=== PATIENT | male | born 1965 | race Caucasian/White ===

== ENCOUNTER → 2020-01-10 16:23 | Outpatient (CLI) | payer OTHER, SELFPAY ==
--- NOTE | ~2020-01-10 | MR_ITS ---
EXAMINATION: MR knee LT wo con DATE: 01/10/2020 17:11 INDICATION: Left knee pain. Medial meniscal derangement. TECHNIQUE: Magnetic resonance imaging (MRI) of the left knee was performed without intravenous contra st. Sequences included coronal PD-weighted FSE, coronal PD-weighted FS FSE, sagittal T2-weighted FSE , sagittal PD-weighted FS FSE and axial PD weighted fat saturated FSE. COMPARISON: Left knee radiographs dated 12/03/2019 FINDINGS: Medial compartment: Longitudinal horizontal tear extending to the inferior articular surface of the posterior horn and po sterior body of the medial meniscus. Mild partial thickness cartilage loss in the medial compartment with some shallow chondral surface irregularity along the anterior weightbearing medial femoral condy le. Lateral compartment: Lateral meniscus is normal. Partial-thickness chondral fissuring with minimal underlying subarticular edema along the posterior rim of the lateral tibial plateau. Patellofemoral compartment: Articular cartilage is normal. Ligaments and tendons: Anterior and posterior cruciate ligaments are normal. The medial collateral ligament and fibular vel ateral ligament complex are normal. The extensor mechanism is normal. The visualized medial and later al hamstring tendons as well as the iliotibial band are normal. Fluid: Likely reactive small left knee joint effusion. No loose osteochondral bodies identified. Mild edema in the soft tissues along the posterior medial margin of the knee likely reactive related to the meni scal tear. Mild prepatellar edema without discrete bursal fluid collection. Osseous/other: Bone alignment is normal. No fracture or foreign marrow replacing process. IMPRESSION: 1. Medial meniscal tear. 2. Mild osteoarthritis in the medial and lateral compartments. 3. Likely reactive small left knee joint effusion. Reviewed, dictated and finalized at location A.
== END ==
PROVIDERS: PCP Family Medicine; Visit Provider Orthopaedic Surgery
DX: M17.12 Unilateral primary osteoarthritis, left knee (principal); S83.242A Other tear of medial meniscus, current injury, left knee, initial encounter; X58.XXXA Exposure to other specified factors, initial encounter
CPT/HCPCS: 73721

== ENCOUNTER 2020-12-19 01:50 | Day surgery (SDC) | payer OTHER, SELFPAY ==
[2020-12-04 14:36] VITALS: BMI 23.9
[2020-12-19 07:47] VITALS: BP 148/82; PULSE 61; RESP 18; TEMP 36.3; O2SAT 100; BMI 23.1
[2020-12-19] MEDS: LACTATED RINGERS 1,000 ML 150 ML IV CONT (08:00)
--- NOTE | 2020-12-19 08:01 | P.CONGI_ITS ---
Assessment and Plan Assessment and plan (1) Colon cancer screening: Code(s): Z12.11 - Encounter for screening for malignant neoplasm of colon Status: Acute Assessment and Plan: Patient presents for screening colonoscopy. He appears to be at average risk for colon polyps. GI Consult Note Consult date/time: 12/19/20 08:01 HPI: Bhaskar Hernandez is a 55 year old male Presents for screening colonoscopy. Patient reports that his current weight appetite and bowel movements are normal. He denies abdominal pain. He has had no bleeding. Family history is noncontributory. Patient presents for neoplasia screening. Review of Systems Review of Systems: All systems reviewed & are unremarkable except as noted in HPI and below PMFSH Past Medical History Medical History Allergic rhinitis, cause unspecified Atherosclerotic heart disease of [place] coronary artery with other forms of angina pectoris Coronary arteriosclerosis after percutaneous transluminal coronary angioplasty (PTCA) Essential (primary) hypertension Hypertension MCL sprain of right knee Medication side effect Metabolic syndrome Mixed hyperlipidemia Old myocardial infarction Prediabetes Statin-induced myositis Family History Family History Father Family history of cardiovascular disease, Onset Age: 36 Acute myocardial infarction Social History Social History Alcohol intake: current Substance use type: does not use Living arrangements: with family Spiritual care concerns: No Meds Home Medications and Allergies Home Medications Medication Instructions Recorded Confirmed Type aspirin 81 mg tablet,delayed 81 mg PO DAILY 04/19/19 12/04/20 History release rosuvastatin 20 mg tablet 20 mg PO DAILY 03/21/20 12/04/20 History lisinopril 20 mg tablet See Rx Instructions .ROUTE 05/26/20 12/04/20 Rx .COMPLEX #90 tablet metoprolol tartrate 25 mg tablet 25 mg PO BID #180 tablet 07/29/20 12/04/20 Rx amlodipine [Norvasc] 5 mg DAILY 12/04/20 12/04/20 History Allergies Allergy/AdvReac Type Severity Reaction Status Date / Time Penicillins Allergy Mild Rash Verified 12/19/20 07:46 Vital Signs Vital Signs - 24 hr 12/19/20 07:47 Temperature 97.4 F L Pulse Rate 61 Respiratory Rate 18 Blood Pressure 148/82 H Pulse Oximetry 100 Exam Narrative: Physical exam reveals patient to be alert. Vital signs stable. HEENT exam is unremarkable. Patient is anicteric. Lungs are clear to auscultation and percussion. Heart is without murmur or extra sounds. Abdominal exam bowel sounds are present soft nontender with no hepatosplenomegaly. Digital external rectal exam is normal.
--- NOTE | 2020-12-19 08:19 | WPDANESEPPF ---
Anes - Initial Pre Proc Eval Procedure: Operation Date: 12/19/20 08:45 Proposed Procedures p Screening Colonoscopy - Sravan Wilkerson MD Date/Time: 12/19/20 08:19 Surgeon: Sravan Wilkerson MD Pre Op Diagnosis: neoplasm screening Patient Data Age: 55 Gender: M Height: 1.83 m Weight: 77.4 kg Last Vital Signs Temp 97.4 F L 12/19/20 07:47 Pulse 61 12/19/20 07:47 Resp 18 12/19/20 07:47 BP 148/82 H 12/19/20 07:47 Pulse Ox 100 12/19/20 07:47 Allergies Allergy/AdvReac Type Severity Reaction Status Date / Time Penicillins Allergy Mild Rash Verified 12/19/20 07:46 Home Medications Medication Instructions Recorded Confirmed Type aspirin 81 mg tablet,delayed 81 mg PO DAILY 04/19/19 12/04/20 History release rosuvastatin 20 mg tablet 20 mg PO DAILY 03/21/20 12/04/20 History lisinopril 20 mg tablet See Rx Instructions .ROUTE 05/26/20 12/04/20 Rx .COMPLEX #90 tablet metoprolol tartrate 25 mg tablet 25 mg PO BID #180 tablet 07/29/20 12/04/20 Rx amlodipine [Norvasc] 5 mg DAILY 12/04/20 12/04/20 History Patient hx anesthesia problems: none Family hx anesthesia problems: none PMFSH Past Medical History Medical History Allergic rhinitis, cause unspecified Atherosclerotic heart disease of [place] coronary artery with other forms of angina pectoris Coronary arteriosclerosis after percutaneous transluminal coronary angioplasty (PTCA) Essential (primary) hypertension Hypertension MCL sprain of right knee Medication side effect Metabolic syndrome Mixed hyperlipidemia Old myocardial infarction Prediabetes Statin-induced myositis Family History Family History Father Family history of cardiovascular disease, Onset Age: 36 Acute myocardial infarction Social History Social History Alcohol intake: current Substance use type: does not use Living arrangements: with family Spiritual care concerns: No Anes - Eval Final PreProcedure Day of Procedure 12/19/20 08:19 Patient weight: normal Heart: regular rate and rhythm Lungs: clear to auscultation Airway: Mallampati scale class II Neurological: alert and oriented Last oral intake: >/= 8 hours ASA classification: III Emergent: no Anesthetic plan: proceed Anesthesia type and monitoring: general GIVS and standard monitoring Informed Consent: The patient's anesthetic plan and its attendant risks and benefits were discussed with the patient/family/POA. Questions were solicited and answers provided to the satisfaction of the patient/family/POA.
[2020-12-19 08:58] VITALS: BP 118/79; PULSE 63; RESP 16; O2SAT 100
[2020-12-19 09:08] VITALS: BP 115/72; PULSE 63; RESP 16; O2SAT 100
[2020-12-19 09:18] VITALS: BP 135/90; PULSE 60; RESP 16; O2SAT 100
== END 2020-12-19 09:29 | disposition home or self-care (01) ==
PROVIDERS: PCP Family Medicine; Visit Provider Internal Medicine Gastroenterology
PROC: 0DJD8ZZ Inspection of Lower Intestinal Tract, Via Natural or Artificial Opening Endoscopic (ICD-10-PCS; CPT 45378; principal; 2020-12-19 08:45)
DX: Z12.11 Encounter for screening for malignant neoplasm of colon (principal); K64.8 Other hemorrhoids; I25.10 Atherosclerotic heart disease of native coronary artery without angina pectoris; I10 Essential (primary) hypertension; E78.2 Mixed hyperlipidemia; I25.2 Old myocardial infarction; R73.03 Prediabetes; Z79.82 Long term (current) use of aspirin
CPT/HCPCS: 45378; J2001; J2704; J7120

== ENCOUNTER 2022-03-18 01:12 | Day surgery (SDC) | payer OTHER, SELFPAY ==
[2022-03-17 15:22] VITALS: BMI 24.4
[2022-03-18] VITALS (9 sets, daily range): BP systolic 111–170; BP diastolic 61–100; PULSE 58–75; RESP 13–22; TEMP 36.6; O2SAT 95–99; BMI 25.1
[2022-03-18 09:03] LABS: Basophils Absolute Auto 0.1 K/mm3 (0.0-0.1); Basophils Percent Auto 0.6 % (0.2-1.2); Eosinophils Absolute Auto 0.1 K/mm3 (0-0.3); Eosinophils Percent Auto 0.6 % (0-4.4); Hematocrit 47.7 % (42.0-52.0); Hemoglobin 16.9 g/dL (14.0-18.0); Immature Granulocyte Absolute 0.02 K/mm3 (0.00-0.031); Immature Granulocyte Percent A 0.2 % (0-0.5); Lymphocytes Absolute Auto 1.53 K/mm3 (0.9-3.2); Lymphocytes Percent Auto 17.7 % (18.3-44.2); Mean Corpuscular HGB Conc 35.4 g/dl (32-36); Mean Corpuscular Hemoglobin 30.3 pg (26-34); Mean Corpuscular Volume 85.5 fl (80-100); Mean Platelet Volume 9.9 fl (7.4-10.4); Monocytes Absolute Auto 0.9 K/mm3 (0.1-0.6); Monocytes Percent Auto 9.8 % (2.6-8.5); Neutrophils Absolute Auto 6.2 K/mm3 (1.3-6.7); Neutrophils Percent Auto 71.1 % (45.5-73.1); Platelet Count Result 222 k/mm3 (150-375); Red Blood Count 5.58 M/mm3 (4.6-6.20); Red Cell Distribution Width 11.7 % (11.5-14.5); White Blood Count 8.7 K/mm3 (4.5-10.0)
[2022-03-18 09:15] LABS: Anion Gap 9 mmol/L (8-16); Blood Urea Nitrogen 20 mg/dL (9-20); Calcium 9.2 mg/dL (8.4-10.2); Carbon Dioxide 27 mmol/L (22-30); Chloride 105 mmol/L (98-107); Estimated CRCL calculation 90 ml/min; Estimated Glomerular Filt Rate > 60; Glucose 178 mg/dL (65-110); Sodium 141 mmol/L (137-145)
[2022-03-18] MEDS: CLOPIDOGREL BISULFATE 300 MG TABLET 600 MG PO (09:17)
--- NOTE | 2022-03-18 10:32 | WPDHPUPDATE1 ---
History and Physical Update Update Date/Time: 03/18/22 10:32 History and Physical has been reviewed, including an updated exam of the patient. There are NO changes in the patient's condition. Risks, benefits, and alternatives have been discussed and questions answered. Patient agrees to proceed with procedure.
--- NOTE | 2022-03-18 10:33 | WPDMODSED ---
Moderate Sedation Note-Pt Data Patient Data Diagnosis: Abnormal stress test Present Complaint: Abnormal stress test Procedure to be performed/Plan: Coronary angiography, LHC +/- PCI Allergies Allergy/AdvReac Type Severity Reaction Status Date / Time Penicillins Allergy Mild Rash Verified 03/18/22 08:48 [id number] Reductase AdvReac Muscle Pain Verified 03/18/22 08:48 Inhibitor Home Medications Medication Instructions Recorded Confirmed Type aspirin 81 mg tablet,delayed 81 mg PO DAILY 04/19/19 03/17/22 History release (Adult Low Dose Aspirin) metoprolol tartrate 25 mg tablet 25 mg PO BID #180 tabs 11/16/21 03/17/22 Rx metformin 500 mg 24 hr 500 mg PO DAILY #90 tabs 12/24/21 03/17/22 Rx tablet,extended release ezetimibe 10 mg tablet (Zetia) 10 mg PO DAILY 02/10/22 03/17/22 History rosuvastatin 20 mg tablet 10 mg PO DAILY 02/10/22 03/17/22 History amlodipine 5 mg tablet 5 mg PO DAILY 03/17/22 03/17/22 History lisinopril 20 mg tablet 20 mg PO DAILY 03/17/22 03/17/22 History Current Medications: Active Medications Sodium Chloride (Normal Saline Iv) 500 mls @ 100 mls/hr IV CONT .Q5H LITZY Sedation/Anesthesia: No previous sedation/anesthesia problems (including family history). 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 Medication side effect Metabolic syndrome Metatarsalgia of right foot Mixed hyperlipidemia Old myocardial infarction Prediabetes Statin-induced myositis Family History Family History Father Family history of cardiovascular disease, Onset Age: 36 Acute myocardial infarction Other HLD (hyperlipidemia) Social History Social History Social History: Caffeine-none Smoking status: Never smoker Alcohol intake: current Alcohol use details: rarely Substance use type: does not use Living arrangements: with family Gender identity (if verbalized by the patient): Male Spiritual care concerns: No Mod Sed Physical Exam Physical Exam Pre Procedural Exam: Normal: Appearance, Heart Rate, Heart Rhythm, Neuro Exam, Abdomen, Extremities and Skin Hours since solid foods: 12 Hours since liquid intake: 8 Mallampati Classification: class II Internal Medicine - PN: Obj Da Vital Signs Vital Signs: Vital Signs - 24 hr 03/18/22 08:49 Temperature 36.6 C Pulse Rate 63 Respiratory Rate 15 Blood Pressure 170/100 H Pulse Oximetry 98 Oxygen Delivery Room Air Meds/Results Medications: Active Medications Generic Name Dose Route Start Last Admin Trade Name Freq PRN Reason Stop Dose Admin Sodium Chloride 500 mls @ 100 mls/hr 03/18/22 08:30 Normal Saline Iv IV CONT .Q5H LITZY Labs 03/18/22 08:46 03/18/22 08:46 Labs: Laboratory Results - last 24 hr 03/18/22 03/18/22 08:46 08:46 WBC 8.7 RBC 5.58 Hgb 16.9 Hct 47.7 MCV 85.5 MCH 30.3 MCHC 35.4 RDW 11.7 Plt Count 222 MPV 9.9 Immature Gran % (Auto) 0.2 Neut % (Auto) 71.1 Lymph % (Auto) 17.7 L [place] % (Auto) 9.8 H Eos % (Auto) 0.6 Baso % (Auto) 0.6 Lymph # (Auto) 1.53 [place] # (Auto) 0.9 H Eos # (Auto) 0.1 Baso # (Auto) 0.1 Abs Immat Gran (auto) 0.02 Absolute Neuts (auto) 6.2 Absolute Nucleated RBC 0.0 Nucleated RBC % 0.0 Sodium 141 Potassium 4.0 Chloride 105 Carbon Dioxide 27 Anion Gap 9 BUN 20 Creatinine 0.90 Estim Creat Clear Calc 90 Estimated GFR > 60 Glucose 178 H Calcium 9.2 ASA Classification
--- NOTE | 2022-03-18 10:34 | WPDCARDPROC ---
Cardiac Cath Procedure Note Date of procedure:: 03/18/22 Performing physician:: CATHETERIZATION LABORATORY REPORT Procedure Date: 03/18/2022 Metal Cans Supervisor: Vamshi Muir M.D., [facility]? Referring Physician: Dr. Salcedo ? Anesthesia: Versed and Fentanyl were ordered and given in my presence at 10:49, procedure ended at 11:24. Supervision of nurse monitored moderate sedation with Versed and Fentanyl was provided for 35 minutes. Total of Versed 2mg and Fentanyl 50mcg were administered by the Larriman Helper RN Elsa Duque. Pre-op Diagnosis: Coronary artery disease Post-op Diagnosis: Moderate calcific eccentric proximal LAD disease at the level of the bifurcation of a large diagonal branch. Patent OM-3 stent. Elevated left ventricular end-diastolic pressure of 36mmHg Procedure(s): Left heart catheterization with coronary angiography Access Site: Right radial artery Brief History and Clinical Indications: Patient is a 56-year-old male with a history of CAD s/p prior OM-3 stent who is referred for cardiac cath for abnormal stress test. All risks, benefits and alternatives to left heart catheterization with or without percutaneous coronary intervention was discussed at length with the patient. Risk of complications including but not limited to bleeding, infection, arrhythmia, stroke, worsening kidney function, blood loss, groin hematoma, limb loss, emergency coronary artery bypass grafting, and even were discussed with the patient and all questions were answered. The patient understood and wished to proceed. Time out called, patient name, date of , medical record number, allergies, procedure performed, identify Metal Cans Supervisor, patient and staff member concurred with accurate data, procedure carried on. Findings: LEFT HEART CATHETERIZATION FINDINGS: 1. Left main: The left main coronary artery is widely patent without any significant obstructive disease. 2. Left anterior descending: The proximal LAD has an eccentric calcific 60% stenosis at the level of the bifurcation of a large first diagonal branch. The first diagonal branch has mild luminal irregularities. The mid LAD has mild diffuse disease of 10-20%. The distal LAD has mild diffuse disease of up to 40%. 3. Left circumflex: The left circumflex has mild luminal irregularities. OM-1 has mild luminal irregularities. OM-2 has mild luminal irregularities. OM-3 has a widely patent stent. 4. Right coronary artery: The RCA has mild luminal irregularities without any significant obstructive angiographic disease. The RCA is the dominant vessel. 5. Left ventricle: A. End-diastolic pressure 36mmHg. B. LV gram deferred. C. No significant gradient across aortic valve on catheter pullback. Description of Procedure: Informed consent signed and placed in the chart. Patient transferred to matlab developer room. Prepped and draped in usual sterile fashion. 2% lidocaine injected subcutaneously in right wrist area. 22-gauge venipuncture catheter used to access the right radial artery with the Seldinger technique. 6-FR slender sheath placed in right radial artery. Nitroglycerine and Verapamil were given intraarterial through the sheath. Versacore wire advanced under fluoroscopy 5F Tig 4 and 5F FL3.5 diagnostic catheter engaged Left Main Coronary Artery. 5F Tig 4 diagnostic catheter engaged Right Coronary Artery Multiple orthogonal angiogram obtained and reviewed 5F Pigtail diagnostic catheter crossed aortic valve to obtain LVEDP, LV angiogram deferred. Hemostasis was achieved by application of TR band. ? Assessment: Moderate calcific eccentric proximal LAD disease at the level of the bifurcation of a large diagonal branch. Patent OM-3 stent. Elevated left ventricular end-diastolic pressure of 36mmHg Post Operative Condition: Stable No significant blood loss Disposition: Home Plan: The patient will be monitored in the recovery area. Discharge home after post-cath bed rest is com
--- NOTE | 2022-03-18 14:32 | SUR.PHASEII ---
iv d/c tip intact. patient education given with at bedside. .all questions and concerns address. patient instructed to keep armboard on until tomorrow morning and to removed dressing. patient taken via wc to personal vehicle, driving home.
== END 2022-03-18 15:00 | disposition home or self-care (01) ==
PROVIDERS: PCP Family Medicine; Visit Provider Internal Medicine
PROC: 4A023N7 Measurement of Cardiac Sampling and Pressure, Left Heart, Percutaneous Approach (ICD-10-PCS; CPT 93452; principal; 2022-03-18 10:00)
DX: I25.10 Atherosclerotic heart disease of native coronary artery without angina pectoris (principal); R94.39 Abnormal result of other cardiovascular function study; Z95.5 Presence of coronary angioplasty implant and graft; I10 Essential (primary) hypertension; I25.2 Old myocardial infarction; E78.2 Mixed hyperlipidemia; R06.09 Other forms of dyspnea; Z79.82 Long term (current) use of aspirin; Z79.84 Long term (current) use of oral hypoglycemic drugs
CPT/HCPCS: 36415; 80048; 85025; 93458; A9270; C1769; C1887; C1894; J1644; J2250; J3010; J7040

== ENCOUNTER 2024-09-08 16:34 | Emergency (ER) | payer OTHER, SELFPAY ==
--- NOTE | ~2024-09-08 | CT_ITS ---
CT OF right femur EXAMINATION: CT femur RT w con DATE: 09/08/2024 18:43 INDICATION: Right eye injury TECHNIQUE: Computed tomography (CT) of the right femur was performed with 100 mL Omnipaque 350 intrav enous contrast. Automated exposure control and iterative reconstruction technique were employed. The dose-length product was 1065.71 mGy-cm. COMPARISON: None FINDINGS: Limitations: The area of clinical concern comprising the proximal and mid thigh were included in the [id number], which excluded the distal femur and knee joint. Bones: Mild lumbar facet arthropathy. Mild right hip osteoarthritis. Right pubic bone island. Lumbar facet arthropathy. The included osseous structures are otherwise within normal limits. There are no e rosive or destructive bony lesions. No fracture. Soft Tissues: Atherosclerotic vascular calcifications. Soft tissue edema throughout the deep muscle p lanes of the right thigh involving the abductor jonah, semitendinosus, and semitendinosus. Lobulated hyperdense collection in the deep musculature of the mid thigh measuring approximately 3.6 cm AP by 4.7 cm transverse by 10.5 cm craniocaudad, mostly noted in the plane between the adductor and semimem branosus muscles. The proximal attachments appear to be intact although this determination is limited with CT. Fluid: No significant fluid within the hip with joint capsule or surrounding bursal spaces. IMPRESSION: Proximal/mid right hamstring and abductor tears with inter and intramuscular edema and hematoma. Rosendo mmend nonemergent but timely MRI of the thighs for improved assessment of the degree of tearing as we ll as the integrity of the proximal attachments. Reviewed, dictated and finalized at location K. IMPRESSION: Proximal/mid right hamstring and abductor tears with inter and intramuscular ed serene and hematoma. Recommend nonemergent but timely MRI of the thighs for improv ed assessment of the degree of tearing as well as the integrity of the proximal attachments.
--- NOTE | ~2024-09-08 | XR_ITS ---
EXAM: XR abdomen/kub 1V DATE: 09/08/2024 17:44 HISTORY: Near syncope . COMPARISON: None available. FINDINGS: Clear lung bases. Normal bowel gas pattern. Enlarged liver. No abnormal abdominal calcifica tion. Pelvic phleboliths. Mild degenerative disc disease in the lumbar spine. Mild bilateral hip oste oarthritic arthritis. IMPRESSION: No radiographic evidence of obstruction or ileus. Hepatomegaly. Reviewed, dictated and finalized at location K.
--- NOTE | ~2024-09-08 | XR_ITS ---
EXAMINATION: XR chest 1V portable Exam Date/Time: 09/08/2024 17:55 CDT HISTORY: syncope Comparison: None. RESULT: Lines, tubes, and devices: None. Lungs and pleura: Clear. Cardiomediastinal silhouette: Unremarkable. Other: No acute osseous or upper abdominal finding. IMPRESSION: No acute cardiopulmonary process. Reviewed, dictated and finalized at location K.
--- OUTSIDE RECORDS SUMMARY | 2024-09-08 16:36 | XMS_ITS | Encounter Summary ---
Author Organization [facility] Address [address] [place] [address] Care Team Providers Care Otolaryngology Rep Name Role Phone Armin Perez MD Primary Care Provider [phone] Tobias Carter MD Primary Care Provider [phone] Reason for Visit * Reason Onset Date Comments MEDICATION REFILL 08/05/2017 Encounter Details Date Type Department Care Team (Late st Contact Info) Description 08/05/2017 Refill [facility] General Internal Medicine [address] [address] Tabby Lan MEDICATION REFILL Social History Tobacco Use Types Packs/Day Years Used Date Smoking Tobacco: Never Smokeless Tobacco: Never Alcohol Use Standard Drinks/Week Comments No 0 (1 standard drink = 0.6 oz pur e alcohol) Sex and Gender Information Value Date Recorded Sex Assigned at Not on file Legal 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 Gender Identity Not on file Sexual Orientation Not on file documented as of this encounter Miscellaneous Notes * Telephone Encounter - Tabby Lan - 08/05/2017 11:52 AM CDT [facility] ATTACHED REFILL REQUEST SENT PER PROTOCOL SAMREEN 02-08-17 NOV 09-05-17 documented in this encounter Plan of Treatment Not on file documented as of this encounter Visit Diagnoses Not on filedocumented in this encounter Care Teams Otolaryngology Rep Relationship Specialty Start Date End Date Armin Perez MD [address] [place] [id number] PCP - General 02/08/17 04/25/19 Tobias Carter MD [address] [place] [id number] PCP - General Family Medicine 04/26/19 documented as of this encounter
--- OUTSIDE RECORDS SUMMARY | 2024-09-08 16:36 | XMS_ITS | Clinical Summary ---
Author Organization [facility] Address [address] [facility] [place] [address] Care Team Providers Care Almond Paste Mixer Name Role Phone Tobias Carter MD Primary Care Provider [phone] Source Comments [facility],non-owned Affiliates and Associated Physician Practices is amultiple site organization consisting of ambulatory clinics and hospital sitesin [place], [place], [place] and [place]. This disclosure is being madepursuant to the Care Everywhere program and may not contain all information available regarding this patient. Last updated 17.[facility] Allergies Active Allergy Reactions Criticality Noted Date Comments Penicillins Rash,Other Medium 02/07/2017 Unknown, as child Medications * Be aware that medications may not be up to date on this document. Alwaysverify current medications with the patient. Coenzyme Q10 (CO Q 10) 100 MG Take 100 mg by mouth DAILY. 7 Active metoprolol tartrate (LOPRESSOR) 25 MG tablet Take 25 mg by mouth BID. 60 tablet 5 7 Active lisinopril (PRINIVIL; ZESTRIL) 20 MG tablet Take 20 mg by mouth DAILY. 30 tablet 3 7 Active clopidogrel (PLAVIX) 75 MG tablet Take 75 mg by mouth DAILY. 30 tablet 11 7 Active Additional Information Patient not taking.Reported on 10/23/2018 amLODIPine (NORVASC) 5 MG tablet Take 1 tablet by mouth once daily 90 tablet 2 8 Active rosuvastatin (CRESTOR) 40 MG tablet Take 1 tablet by mouth once daily 90 tablet 3 8 Active aspirin (ASPIRIN) 81 MG tablet Take 1 tablet by mouth once daily 100 tablet 4 12/03/201 8 Active Active Problems Problem Noted Date Diagnosed Date Hyperlipidemia 03/06/2018 Assessment & Plan (04/27/2019 9:36 AM BALANCE TRUING INSPECTOR): Encouraged pt to take Crestor at night, will consider change to Pravastatin if he continues to endorse myalgias with change in timing of mediation. Essential hypertension 03/06/2018 Assessment & Plan (04/27/2019 10:00 AM BALANCE TRUING INSPECTOR): SBP remains slightly above goal, given low resting HR, would not further increase BB at this time, log BP at home and plan to increase lisinopril in follow up. Diastolic dysfunction 03/06/2018 S/P coronary artery stent placement 03/06/2018 Overview (03/06/2018): 1. Successful PCI of the OM3 using a 2.25x20 mm Synergy MARY KAY.02/07/17 Atherosclerotic heart diseas e of [place] coronary artery without angina pectoris 02/07/2017 Assessment & Plan (04/27/2019 9:59 AM BALANCE TRUING INSPECTOR): Stable, denies pain. Continue ASA, statin, BB and Curtis, CCB. Non-ST elevation (NSTEMI) myocardial infarction 02/07/2017 Family History Medical History Relation Name Comments CAD (Coronary Artery Disease) Father Status: Alzheimer's Disease Mother Status: Relation Name Status Comments Father Mother Social History Tobacco Use Types Packs/Day Years Used Date Smoking Tobacco: Never Smokeless Tobacco: Never Alcohol Use Standard Drinks/Week Comments No 0 (1 standard drink = 0.6 oz pur e alcohol) Sex and Gender Information Value Date Recorded Sex Assigned at Not on file Legal Sex Male 5:16 PM BALANCE TRUING INSPECTOR Gender Identity Not on file Sexual Orientation Not on file 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 Not on file Not on file Not on file Last Filed Vital Signs Vital Sign Reading Time Taken Comments Blood Pressure 132/80 10/09/2019 4:19 PM CDT Pulse 56 10/09/2019 4:19 PM CDT Temperature 36.9 C (98.4 F) 10/09/2019 4:19 PM CDT Respiratory Rate 16 10/09/2019 4:19 PM CDT Oxygen Saturation 98% 10/09/2019 4:19 PM CDT Inhaled Oxygen Concentration - - Weight 83 kg (183 lb) 10/09/2019 4:19 PM CDT Height 182.9 cm (6') 10/09/2019 4:19 PM CDT Body Mass Index 24.82 10/09/2019 4:19 PM CDT Plan of Treatment Health Maintenance Due Date Last Done Comments COLOGUARD (AGES 45-75) - COL ON CA SCREENING 1967 COLON MONITORING 1967 COLONOSCOPY - COLON CA SCREENING 1967 CT COLONOGRAPHY - COLON CA SCREENING 1967 Colorectal Cancer Screening 1967 FIT - COLON CA SCREENING 1967 FLEX SIG - COLON CA SCREENING 1967 HIV SCREENING 1982 HEPATITIS C SCREENING 05/12/1985 DTAP/TDAP/TD VACCINES (1 - Tdap) 1986 HEPATITIS B VACCINE (1 of 3 - 19+ 3-dose series) 1986 PNEUMOCOCCAL VACCINE 50+ (1 of 1 - PCV) 2017 ZOSTER VACCINE (1 of 2) 2017 COVID-19 VACCINE (1 - 2023-2 5 season) 2023 DEPRESSION SCREENING 04/04/2024 INFLUENZA VACCINE (Season Ended) 2024 HIB VACCINE Aged Out No longer eligi ble based on patient's age to complete this topic HPV VACCINE Aged Out No longer eligi ble based on patient's age to complete this topic MENINGOCOCCAL (Group B) VACC INE SHARED DECISION-MAKING Aged Out No longer eligibl e based on patient's age to complete this topic MENINGOCOCCAL GROUPS A/C/Y/W VACCINE Aged Out No longer eligible b ased on patient's age to complete this [place] [address] [employer] Care Teams Almond Paste Mixer Relationship Specialty Start Date End Date Tobias Carter MD [address] [place] [id number] PCP - General Family Medicine 04/26/19
--- OUTSIDE RECORDS SUMMARY | 2024-09-08 16:36 | XMS_ITS | Referral Summary ---
Author Organization [facility] Address [address] [place] [address] Care Team Providers Care Corporate Executive Chef Name Role Phone Tobias Carter MD Primary Care Provider [phone] Allergies Active Allergy Reactions Criticality Noted Date Comments Penicillins Unknown,Rash Medium 02/07/2017 Unknown, as child Hmonozb-Hln-Tyf Reductase Inhibitors Muscle pain Medium 02/09/2022 Medications amLODIPine (NORVASC) 5 mg tablet Take 1 tablet (5 mg total) by mouth daily 0 Active coenzyme Q10 100 mg capsule Take 100 mg by mouth daily 7 Active metoprolol tartrate (LOPRESSOR) 25 mg immediate release tablet Take 1 tablet (25 mg total) by mouth 2 (two) times a day 0 Active metFORMIN XR (GLUCOPHAGE XR) 500 mg 24 hr tablet TAKE 1 TABLET BY MOUTH EVERY DAY WITH FOOD IN THE EVENING 2 Active ezetimibe (ZETIA) 10 mg tablet Take 1 tablet (10 mg total) by mouth daily 30 tablet 11 2 Active aspirin (Adult Low Dose Aspirin) 81 mg enteric coated tablet Take 1 tablet (81 mg total) by mouth daily 2 Active nitroglycerin (NITROSTAT) 0.[address] 1 tablet (0.4 mg total) under the tongue every 5 (five) minutes as needed for chest pain Max 3 doses. 30 tablet 3 3 Active rosuvastatin (CRESTOR) 20 mg tablet TAKE 1 TABLET BY MOUTH EVERY DAY 90 tablet 1 3 Active lisinopriL (PRINIVIL,ZESTRI L) 40 mg tablet Take 1 tablet (40 mg total) by mouth daily 4 Active Dexcom G6 Sensor device as directed 4 Active Dexcom G6 Transmitter device as directed 4 Active empagliflozin (JARDIANCE) 10 mg tablet 1 tablet (10 mg total) daily Active Active Problems Problem Noted Date Diagnosed Date Mixed diabetic hyperlipidemi a associated with type 2 diabetes mellitus 04/12/2022 Abnormal stress test 03/09/2022 KING (dyspnea on exertion) 02/09/2022 Family history of premature CAD 02/08/2020 H/O non-ST elevation myocardial infarction (NSTE [place]) 02/08/2020 Coronary artery disease of n ative artery of [place] heart with stable angina pectoris (CMS/HCC) 02/08/2020 S/P coronary artery stent placement 02/08/2020 Hypertension associated with diabetes 02/08/2020 Statin myopathy 02/08/2020 Resolved Problems Problem Noted Date Diagnosed Date Resolved Date Mixed hyperlipidemia 02/09/2022 023 Social History Tobacco Use Types Packs/Day Years Used Date Smoking Tobacco: Never Smokeless Tobacco: Never Tobacco Cessation:Counseling Given: Not Answered Alcohol Use Standard Drinks/Week Comments Yes 0 (1 standard drink = 0.6 oz pur e alcohol) rarely Sex and Gender Information Value Date Recorded Sex Assigned at Not on file Legal Sex Male 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 PLANT 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 Gender Identity Not on file Sexual Orientation Not on file Last Filed Vital Signs Vital Sign Reading Time Taken Comments Blood Pressure 138/82 02/23/2024 3:02 PM PLANT ANATOMIST Pulse 60 02/23/2024 3:02 PM PLANT ANATOMIST Temperature - - Respiratory Rate - - Oxygen Saturation 97% 02/23/2024 3:02 PM PLANT ANATOMIST Inhaled Oxygen Concentration - - Weight 78.5 kg (173 lb) 02/23/2024 3:02 PM PLANT ANATOMIST Height 182.9 cm (6') 02/23/2024 3:02 PM PLANT ANATOMIST Body Mass Index 23.46 02/23/2024 3:02 PM PLANT ANATOMIST Plan of Treatment Not on file Procedures Procedure Name Priority Date/Time Associated Diagnosis Comments LIPID PANEL Routine 01/04/2024 3:35 PM CDT HEMOGLOBIN A1C Routine 10/04/2023 from Last 3 Months or Most Recently Relevant to Health Maintenance Results * Lipid panel (01/04/2024 3:35 PM CDT) SCRIBED Cholesterol, Total 150 <200 [facility] SCRIBED HDL 53 >40 [facility] SCRIBED LDL 80 <100 [facility] SCRIBED Triglycerides 86 <150 [facility] Blood Historical Provider LAB BLOOD ORDERABLES Edit ed Result - Final [facility] * (ABNORMAL) Hemoglobin A1c (10/04/2023) SCRIBED Hemoglobin A1c 7(A) 5.7 - 5.7 % EXTERNAL LAB Blood Historical Provider LAB BLOOD ORDERABLES Alma Delia l Result EXTERNAL LAB from Last 3 Months or Most Recently Relevant to Health Maintenance [facility] [place] [address] [facility] HMO Care Teams Corporate Executive Chef Relationship Specialty Start Date End Date Tobias Carter MD PCP - General Family Medicine 10/29/19
--- OUTSIDE RECORDS SUMMARY | 2024-09-08 16:36 | XMS_ITS | Encounter Summary ---
Author Organization [facility] Address [address] [place] [address] Care Team Providers Care Decorating Kiln Operator Name Role Phone Armin Perez MD Primary Care Provider [phone] Tobias Carter MD Primary Care Provider [phone] Reason for Visit * Reason Onset Date Comments MEDICATION REFILL 05/22/2018 Encounter Details Date Type Department Care Team (Late st Contact Info) Description 05/22/2018 Refill [facility] [address] [facility] [address] [place] [address] Cruzito Burciaga MD [address] [place] [address] MEDICATION REFILL Social History Tobacco Use Types Packs/Day Years Used Date Smoking Tobacco: Never Smokeless Tobacco: Never Alcohol Use Standard Drinks/Week Comments No 0 (1 standard drink = 0.6 oz pur e alcohol) Sex and Gender Information Value Date Recorded Sex Assigned at Not on file 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 Gender Identity Not on file Sexual Orientation Not on file 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
--- OUTSIDE RECORDS SUMMARY | 2024-09-08 16:36 | XMS_ITS | Clinical Summary ---
Author Organization [facility] Address [address] [place] [address] Care Team Providers Care Management And Budget Analyst Name Role Phone Tobias Carter MD Primary Care Provider [phone] Allergies Active Allergy Reactions Criticality Noted Date Comments Penicillins Unknown,Rash Medium 02/07/2017 Unknown, as child Eqhapzg-Twh-Cdt Reductase Inhibitors Muscle pain Medium 02/09/2022 Medications [...] 02/08/2020 H/O non-ST elevation myocardial infarction (NSTE [place]) 02/08/2020 Coronary artery disease of n ative artery of [place] heart with stable angina pectoris (CMS/HCC) 02/08/2020 S/P coronary artery stent placement 02/08/2020 Hypertension associated with diabetes 02/08/2020 Statin myopathy 02/08/2020 Resolved Problems Problem Noted Date Diagnosed Date Resolved Date Mixed hyperlipidemia 02/09/2022 023 Surgical History Surgery Date Site/Laterality Comments CARDIAC CATHETERIZATION Medical History Medical History Date Comments Heart attack (HCC) Hypertension H/O angioplasty Hyperlipidemia Family History Medical History Relation Name Comments No Known Problems Daughter 1 No Known Problems Daughter 2 Heart attack Father Cancer Mother Relation Name Status Comments Daughter 1 Alive Daughter 2 Alive Father (Age 36) Mother (Age 87) Social History Tobacco Use Types Packs/Day Years Used Date Smoking Tobacco: Never Smokeless Tobacco: Never Tobacco Cessation:Counseling Given: Not Answered Alcohol Use Standard Drinks/Week Comments Yes 0 (1 standard drink = 0.6 oz pur e alcohol) rarely Sex and Gender Information Value Date Recorded Sex Assigned at Not on file Legal Sex Male 5:08 AM GROUNDMAN Gender Identity Not on file Sexual Orientation Not on file Obstetrics History Last Filed Vital Signs Vital Sign Reading Time Taken Comments Blood Pressure 138/82 02/23/2024 3:02 PM GROUNDMAN Pulse 60 02/23/2024 3:02 PM GROUNDMAN Temperature - - Respiratory Rate - - Oxygen Saturation 97% 02/23/2024 3:02 PM GROUNDMAN Inhaled Oxygen Concentration - - Weight 78.5 kg (173 lb) 02/23/2024 3:02 PM GROUNDMAN Height 182.9 cm (6') 02/23/2024 3:02 PM GROUNDMAN Body Mass Index 23.46 02/23/2024 3:02 PM GROUNDMAN Plan of Treatment Health Maintenance Due Date Last Done Comments Albumin Creatinine Ratio, Urine 1967 Colon Cancer Screening-Colonoscopy 1967 Depression Screening 1967 Hepatitis C Screening 1967 Prostate Cancer Screening-PSA 1967 eGFR 1967 Dilated Eye Exam 1967 Foot Exam 1967 Hepatitis B Screening 1985 Regular Well Visit/Exam 18-64 1985 Pneumococcal vaccine <65 (1 of 2 - PCV) 1986 Zoster Vaccine (1 of 2) 2017 Covid-19 Vaccine (4 - 2023-2 5 season) 2023 03/18/2021, 06/26/2020, 06/05/2020 Hemoglobin A1C 04/05/2024 10/04/2023 Influenza Vaccine (Season Ended) 2024 Lipid Panel 01/03/2025 01/04/2024, 07/0 05/2023, 02/09/2022, Additional history exists DTaP/Tdap/Td Vaccine (2 - Td or Tdap) 08/15/2030 08/15/2020 Procedures Procedure Name Priority Date/Time Associated Diagnosis Comments LIPID PANEL Routine 01/04/2024 3:35 PM CDT HEMOGLOBIN A1C Routine 10/04/2023 from Last 3 Months or Most Recently Relevant to Health Maintenance Results * Lipid panel (01/04/2024 3:35 PM CDT) SCRIBED Cholesterol, Total 150 <200 [facility] SCRIBED HDL 53 >40 [facility] SCRIBED LDL 80 <100 [facility] SCRIBED Triglycerides 86 <150 [facility] Blood us Historical Provider LAB BLOOD ORDERABLES Edit ed Result - Final [facility] * (ABNORMAL) Hemoglobin A1c (10/04/2023) SCRIBED Hemoglobin A1c 7(A) 5.7 - 5.7 % EXTERNAL LAB Blood us Historical Provider LAB BLOOD ORDERABLES Alma Delia chevy Result EXTERNAL LAB from Last 3 Months or Most Recently Relevant to Health Maintenance Insurance [facility] CG Scholar O [facility] CG Scholar O Care Teams Management And Budget Analyst Relationship Specialty Start Date End Date Tobias Carter MD PCP - General Family Medicine 10/29/19
--- OUTSIDE RECORDS SUMMARY | 2024-09-08 16:36 | XMS_ITS | Encounter Summary ---
Author Organization [facility] Address [address] [place] [address] Care Team Providers Care Potato Bucker Name Role Phone Armin Perez MD Primary Care Provider [phone] Tobias Carter MD Primary Care Provider [phone] Reason for Visit * Reason Onset Date Comments MEDICATION REFILL 01/18/2018 Encounter Details Date Type Department Care Team (Late st Contact Info) Description 01/18/2018 Refill [facility] General Internal Medicine [address] [address] Armin Perez MD [address] [place] [address] MEDICATION REFILL Social History Tobacco Use Types Packs/Day Years Used Date Smoking Tobacco: Never Smokeless Tobacco: Never Alcohol Use Standard Drinks/Week Comments No 0 (1 standard drink = 0.6 oz pur e alcohol) Sex and Gender Information Value Date Recorded Sex Assigned at Not on file 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 Pt does not appear to be GIM patient. Routing to last ordering provider and scheduling for assistance with setting up pt's care. documented in this encounter Plan of Treatment Not on file documented as of this encounter Visit Diagnoses Not on filedocumented in this encounter Care Teams Potato Bucker Relationship Specialty Start Date End Date Armin Perez MD [address] [place] [address] PCP - General 02/08/17 04/25/19 Tobias Carter MD [address] [place] [phone] PCP - General Family Medicine 04/26/19 documented as of this encounter
[2024-09-08 16:45] VITALS: BP 145/87; PULSE 70; RESP 16; TEMP 36.4; O2SAT 100
[2024-09-08 17:00] VITALS: BP 144/89; PULSE 67; RESP 16; O2SAT 98
--- OUTSIDE RECORDS SUMMARY | 2024-09-08 17:03 | XMS_ITS | Referral Summary ---
Author Organization [facility] Address [address] [place] [address] Care Team Providers Care Endoscopic Technician Name Role Phone Tobias Carter MD Primary Care Provider [phone] Allergies Active Allergy Reactions Criticality Noted Date Comments Penicillins Unknown,Rash Medium 02/07/2017 Unknown, as child Ysrlmvx-Yqi-Jnj Reductase Inhibitors Muscle pain Medium 02/09/2022 Medications [...] 02/08/2020 H/O non-ST elevation myocardial infarction (NSTE [place]) 02/08/2020 Coronary artery disease of n ative artery of [place] heart with stable angina pectoris (CMS/HCC) 02/08/2020 [...] on file 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 Gender Identity Not on file Sexual Orientation Not on file Last Filed Vital Signs Vital Sign Reading Time Taken Comments Blood Pressure 138/82 02/23/2024 3:02 PM MEAT CUTTING TEACHER Pulse 60 02/23/2024 3:02 PM MEAT CUTTING TEACHER Temperature - - Respiratory Rate - - Oxygen Saturation 97% 02/23/2024 3:02 PM MEAT CUTTING TEACHER Inhaled Oxygen Concentration - - Weight 78.5 kg (173 lb) 02/23/2024 3:02 PM MEAT CUTTING TEACHER Height 182.9 cm (6') 02/23/2024 3:02 PM MEAT CUTTING TEACHER Body Mass Index 23.46 02/23/2024 3:02 PM MEAT CUTTING TEACHER Plan of Treatment Not on file Procedures [...] Most Recently Relevant to Health Maintenance [facility] [place] [address] [facility] HMO Care Teams Endoscopic Technician Relationship Specialty Start Date End Date Tobias Carter MD PCP - General Family Medicine 10/29/19
--- OUTSIDE RECORDS SUMMARY | 2024-09-08 17:03 | XMS_ITS | Clinical Summary ---
Author Organization [facility] Address [address] [place] [address] Care Team Providers Care Infant And Toddler Teacher Name Role Phone Tobias Carter MD Primary Care Provider [phone] Allergies Active Allergy Reactions Criticality Noted Date Comments Penicillins Unknown,Rash Medium 02/07/2017 Unknown, as child Expgbqu-Fow-Jup Reductase Inhibitors Muscle pain Medium 02/09/2022 Medications [...] 02/08/2020 H/O non-ST elevation myocardial infarction (NSTE [place]) 02/08/2020 Coronary artery disease of n ative artery of [place] heart with stable angina pectoris (CMS/HCC) 02/08/2020 [...] on file Legal Sex Male 5:08 AM GUARD CAPTAIN Gender Identity Not on file Sexual Orientation Not on file Obstetrics History Last Filed Vital Signs Vital Sign Reading Time Taken Comments Blood Pressure 138/82 02/23/2024 3:02 PM GUARD CAPTAIN Pulse 60 02/23/2024 3:02 PM GUARD CAPTAIN Temperature - - Respiratory Rate - - Oxygen Saturation 97% 02/23/2024 3:02 PM GUARD CAPTAIN Inhaled Oxygen Concentration - - Weight 78.5 kg (173 lb) 02/23/2024 3:02 PM GUARD CAPTAIN Height 182.9 cm (6') 02/23/2024 3:02 PM GUARD CAPTAIN Body Mass Index 23.46 02/23/2024 3:02 PM GUARD CAPTAIN Plan of Treatment Health Maintenance Due Date [...] Most Recently Relevant to Health Maintenance Insurance [facility] World[employer]ate O [facility] [employer] O Care Teams Infant And Toddler Teacher Relationship Specialty Start Date End Date Tobias Carter MD PCP - General Family Medicine 10/29/19
--- OUTSIDE RECORDS SUMMARY | 2024-09-08 17:03 | XMS_ITS | Encounter Summary ---
Author Organization [facility] Address [address] [facility] [place] [address] Care Team Providers Care Equine Manager Name Role Phone Armin Perez MD Primary Care Provider [phone] Tobias Carter MD Primary Care Provider [phone] Reason for Visit * Reason Onset Date Comments MEDICATION REFILL 08/05/2017 Encounter Details Date Type Department Care Team (Late st Contact Info) Description 08/05/2017 Refill [facility] General Internal Medicine [address] [address] Tabby Lan MEDICATION REFILL Social History Tobacco Use Types Packs/Day Years Used Date Smoking Tobacco: Never Smokeless Tobacco: Never Alcohol Use Standard Drinks/Week Comments No 0 (1 standard drink = 0.6 oz pur e alcohol) Sex and Gender Information Value Date Recorded Sex Assigned at Not on file Legal 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
--- OUTSIDE RECORDS SUMMARY | 2024-09-08 17:03 | XMS_ITS | Encounter Summary ---
Author Organization [facility] Address [address] [facility] [place] [address] Care Team Providers Care Labor Delivery Rn Name Role Phone Armin Perez MD Primary Care Provider [phone] Tobias Carter MD Primary Care Provider [phone] Reason for Visit * Reason Onset Date Comments MEDICATION REFILL 01/18/2018 Encounter Details Date Type Department Care Team (Late st Contact Info) Description 01/18/2018 Refill [facility] General Internal Medicine [address] [address] Armin Perez MD [address] [place] [address] MEDICATION REFILL Social History Tobacco Use Types Packs/Day Years Used Date Smoking Tobacco: Never Smokeless Tobacco: Never Alcohol Use Standard Drinks/Week Comments No 0 (1 standard drink = 0.6 oz pur e alcohol) Sex and Gender Information Value Date Recorded Sex Assigned at Not on file 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
--- OUTSIDE RECORDS SUMMARY | 2024-09-08 17:03 | XMS_ITS | Clinical Summary ---
Author Organization [facility] [employer] Address [address] [facility] [place] [address] Care Team Providers Care Diazo Technician Name Role Phone Tobias Carter MD Primary Care Provider [phone] Source Comments [facility] [employer],non-owned Affiliates and Associated Physician Practices is amultiple site organization consisting of ambulatory clinics and hospital sitesin [place], [place], [place] and [place]. This disclosure is being madepursuant to the Care Everywhere program and may not contain all information available regarding this patient. Last updated 17.[employer] Allergies Active Allergy Reactions Criticality Noted Date [...] 03/06/2018 Assessment & Plan (04/27/2019 9:36 AM DOT COMPLIANCE COORDINATOR): Encouraged pt to take Crestor at night, will consider change to Pravastatin if he continues to endorse myalgias with change in timing of mediation. Essential hypertension 03/06/2018 Assessment & Plan (04/27/2019 10:00 AM DOT COMPLIANCE COORDINATOR): SBP remains slightly above goal, given low resting HR, would not further increase BB at this time, log BP at home and plan to increase lisinopril in follow up. Diastolic dysfunction 03/06/2018 S/P coronary artery stent placement 03/06/2018 Overview (03/06/2018): 1. Successful PCI of the OM3 using a 2.25x20 mm Synergy MARY KAY.02/07/17 Atherosclerotic heart diseas e of [place] coronary artery without angina pectoris 02/07/2017 Assessment & Plan (04/27/2019 9:59 AM DOT COMPLIANCE COORDINATOR): Stable, denies pain. 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
--- OUTSIDE RECORDS SUMMARY | 2024-09-08 17:03 | XMS_ITS | Encounter Summary ---
Author Organization [facility] Address [address] [place] [address] Care Team Providers Care Transport Specialist Name Role Phone Armin Perez MD Primary Care Provider [phone] Tobias Carter MD Primary Care Provider [phone] Reason for Visit * Reason Onset Date Comments MEDICATION REFILL 05/22/2018 Encounter Details Date Type Department Care Team (Late st Contact Info) Description 05/22/2018 Refill [facility] [address] [facility] [address] [place] [address] Cruzito Burciaga MD [address] [place] [address] MEDICATION REFILL Social History Tobacco Use Types Packs/Day Years Used Date Smoking Tobacco: Never Smokeless Tobacco: Never Alcohol Use Standard Drinks/Week Comments No 0 (1 standard drink = 0.6 oz pur e alcohol) Sex and Gender Information Value Date Recorded Sex Assigned at Not on file Legal Sex Male 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 Gender Identity Not on file Sexual Orientation Not on file 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
--- NOTE | 2024-09-08 17:34 | ECG_ITS ---
Test Date: 2024-09-08 17:49:51 Measurements Intervals Hermon Rate: 68 P: 14 AL: 152 QRS: 69 QRSD: 90 T: 30 QT: 411 QTc: 437 Interpretive Statements SINUS RHYTHM NONSPECIFIC T-WAVE ABNORMALITY- INFERIOR LEADS BASELINE ARTIFACT- I, II, AVR, AVL BORDERLINE ECG No previous ECG available for comparison Electronically Signed On 09-08-2024 20:13:02 CDT by Gregg Mayes D.O.
--- NOTE | 2024-09-08 17:54 | ED.GENADULT ---
HPI - General Adult General Chief complaint: Dizziness Stated complaint: lightheaded and tingling extremeties Time Seen by Provider: 09/08/24 16:53 History of Present Illness HPI narrative: 59-year-old male presents emergency department for evaluation for injury to his right medial thigh. Patient states he was running hyperextended his right leg felt that were multiple muscles and his right thigh. Patient states that he quit the race and went home and a few hours later he had an episode of lightheaded and dizziness for which he needed to lay down and rest. Patient states that he feels improved. Patient denies any chest pain or shortness of breath. Patient's blood pressure was in the 150s upon arrival to the emergency department. Patient is not tachycardic. Patient does have some fullness to the right medial thigh suspicious for hematoma. Related Data Home Medications ?Medication ?Instructions ?Recorded ?Confirmed ?Last Taken ?Type aspirin 81 mg tablet,delayed 81 mg PO DAILY 04/19/19 09/13/24 03/17/22 History release (Adult Low Dose Aspirin) nitroglycerin 0.4 mg sublingual mg buccal 06/24/23 09/13/24 Unknown History tablet Allergies Allergy/AdvReac Type Severity Reaction Status Date / Time Penicillins Allergy Mild Rash Verified 09/12/24 14:21 [id number] Reductase AdvReac Muscle Pain Verified 09/12/24 14:21 Inhibitor Review of Systems Review of Systems: All systems reviewed & are unremarkable except as noted in HPI and below [facility] Past Medical History Medical History 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 Metatarsalgia of right foot Hypertension Statin-induced myositis Medication side effect MCL sprain of right knee Coronary arteriosclerosis after percutaneous transluminal coronary angioplasty (PTCA) Allergic rhinitis, cause unspecified Atherosclerotic heart disease of [place] coronary artery with other forms of angina pectoris Essential (primary) hypertension Metabolic syndrome Mixed hyperlipidemia Old myocardial infarction Prediabetes Family History Family History Father Family history of cardiovascular disease, Onset Age: 36 Acute myocardial infarction Other HLD (hyperlipidemia) Social History Social History Social History: Caffeine-none Smoking status: Never smoker Alcohol intake: current Alcohol use details: rarely Substance use type: does not use Lack of Transportation: No Lack of Food: Never True Current Housing: I Have Housing Concerned About Future Housing: No Difficulty Paying Gas/Electric Bills: No Difficulty Paying for Meds: No Currently Unemployed: No Education: Bachelor's Degree Living arrangements: with family Occupation/Education: occupation Gender identity (if verbalized by the patient): Male Spiritual care concerns: No Exam Narrative: APPEARANCE: Well appearing, no pain, no distress, well-nourished. HEAD: normocephalic, atraumatic. EYES: PERRLA/EOMI, conjunctivae clear. NOSE: Normal no drainage EARS:TMS clear with good light reflex. THROAT: Pharynx clear, no exudate. NECK: Supple. No adenopathy, no masses. RESPIRATORY: Airway patent, respirations nonlabored. Clear to auscultation bilaterally, no rales, rhonchi, wheezing. CARDIOVASCULAR: Regular rate and rhythm without murmurs rubs or gallops. ABDOMINAL: Soft, nontender, nondistended, normal bowel sounds MUSCULOSKELETAL: Medial right thigh tenderness concerning for hematoma versus muscle strain. Strong femoral pulse and strong DP pulse NEURO: Alert. Cranial nerves II through XII intact. Good gait. Good coordination SKIN: Warm, dry. Normal Color Course Vital Signs Vital signs: Vital Signs Temperature 97.6 F 09/08/24 16:45 Pulse Rate 70 09/08/24 16:45 Respiratory Rate 16 09/08/24 16:45 Blood Pressure 145/87 H 09/08/24 16:45 Pulse Oximetry 100 09/08/24 16:45 Oxygen Delivery Room Air 09/08/24 16:45 Temperature 97.6 F 09/08/24 16:45 Pulse Rate 77 09/08/24 20:00 Respiratory Rate 16 09/08/24 20:00 Blood Pressure 142/83 H 09/08/24 20:00 Pulse Oximetry 99 09/08/24 20:00 Oxygen Delivery Room Air 09/08/24 16:45 Medical Decision Making [facility] Narrative Medical decision making narrative: 59-year-old male presents emergency department for evaluation for a medial thigh injury after running. CT scan was concerning for rupture the hamstring and adductor muscle. Patient does describe having a near syncopal episode at home. Patient had no abnormalities on EKG and negative cardiac workup. Patient was provided crutches for nonweightbearing encouraged close follow-up with Orthopedics. Patient declined any medications for pain control. Differential Diagnosis Differential Diagnosis: Syncope, near syncope, vasovagal, [place], hamstring rupture, hamstring tear, hematoma Vital Signs Vital Signs: Vital Signs Temperature 97.6 F 09/08/24 16:45 Pulse Rate 70 09/08/24 16:45 Respiratory Rate 16 09/08/24 16:45 Blood Pressure 145/87 H 09/08/24 16:45 Pulse Oximetry 100 09/08/24 16:45 Oxygen Delivery Room Air 09/08/24 16:45 Temperature 97.6 F 09/08/24 16:45 Pulse Rate 77 09/08/24 20:00 Respiratory Rate 16 09/08/24 20:00 Blood Pressure 142/83 H 09/08/24 20:00 Pulse Oximetry 99 09/08/24 20:00 Oxygen Delivery Room Air 09/08/24 16:45 Lab Data 09/08/24 17:53 09/08/24 17:53 Labs: Lab Results 09/08/24 09/08/24 Range/Units 17:53 18:09 WBC 16.1 H (4.5-10.0) K/mm3 RBC 5.53 (4.6-6.20) M/mm3 Hgb 16.5 (14.0-18.0) g/dL Hct 48.0 (42.0-52.0) % MCV 86.8 (80-100) fl MCH 29.8 (26-34) pg MCHC 34.4 (32-36) g/dl RDW 12.1 (11.5-14.5) % Plt Count 209 (150-375) k/mm3 MPV 10.0 (7.4-10.4) fl Immature Gran % (Auto) 0.3 (0-0.5) % Neut % (Auto) 88.3 H (45.5-73.1) % Lymph % (Auto) 4.7 L (18.3-44.2) % [place] % (Auto) 6.4 (2.6-8.5) % Eos % (Auto) 0.0 (0-4.4) % Baso % (Auto) 0.3 (0.2-1.2) % Lymph # (Auto) 0.76 L (0.9-3.2) K/mm3 [place] # (Auto) 1.0 H (0.1-0.6) K/mm3 Eos # (Auto) 0.0 (0-0.3) K/mm3 Baso # (Auto) 0.1 (0.0-0.1) K/mm3 Abs Immat Gran (auto) 0.05 H (0.00-0.031) K/mm3 Absolute Neuts (auto) 14.2 H (1.3-6.7) K/mm3 Absolute Nucleated RBC 0.000 (0.0-0.012) K/mm3 Band Neutrophils % Not Reportable Nucleated RBC % 0.0 (0.0-0.2) % Platelet Estimate Adequate (Adequate) Schistocytes None seen PT 14.4 (11.1-14.7) Seconds INR 1.1 APTT 21.6 L (22.3-36.8) Seconds Sodium 137 (137-145) mmol/L Potassium 3.8 (3.4-5.0) mmol/L Chloride 104 (98-107) mmol/L Carbon Dioxide 23 (22-30) mmol/L Anion Gap 10 (4-12) mmol/L BUN 32 H D (9-20) mg/dL Creatinine 0.81 (0.7-1.3) mg/dL Estim Creat Clear Calc 96 ml/min Estimated GFR > 60 (59 - ) Glucose 143 H (65-110) mg/dL Calcium 9.5 (8.4-10.2) mg/dL Magnesium 2.2 (1.6-2.3) mg/dL Total Bilirubin 1.0 (0.2-1.3) mg/dL AST 40 (17-59) U/L ALT 40 (6-50) U/L Alkaline Phosphatase 35 L (38-126) U/L Total Protein 7.7 (6.3-8.2) g/dL Albumin 4.8 (3.5-5.1) g/dL Discharge Plan Discharge Clinical Impression: Near syncope, Hamstring injury Patient Disposition: Home Condition: Stable Instructions: Antibiotic Form, Crutch Instructions (ED), Hamstring Injury (ED), Near Syncope (ED) Additional Instructions: Proximal/mid right hamstring and abductor tears. Recommend MRI of the thighs for improved assessment of the degree of tearing. Tylenol for pain control. Crutches for nonweightbearing. Have close follow-up with Orthopedics. Patient Language: Wallisian Prescriptions: No Action aspirin [Adult Low Dose Aspirin] 81 mg tablet,delayed release (DR/EC) 81 mg PO DAILY nitroglycerin 0.4 mg tablet, sublingual buccal (DME) Dexcom G6 [employer] Misc See Rx Instructions .Route Qty: 1 0RF Rx Instructions: As directed lisinopril 40 mg tablet 40 mg PO DAILY Qty: 90 1RF metoprolol tartrate 25 mg tablet 25 mg PO BID Qty: 180 1RF (DME) Dexcom G6 Transmitter Device See Rx Instructions .Route Qty: 3 5RF Rx Instructions: As directed metformin 500 mg tablet extended release 24 hr See Rx Instructions .ROUTE .COMPLEX Qty: 90 1RF Dose Instruction: TAKE 1 TABLET BY MOUTH EVERY DAY WITH THE LARGEST MEAL OF THE DAY Rx Instructions: TAKE 1 TABLET BY MOUTH EVERY DAY WITH THE LARGEST MEAL OF THE DAY Jardiance 10 mg tablet 10 mg PO DAILY Qty: 90 1RF amlodipine 5 mg tablet See Rx Instructions .ROUTE .COMPLEX Qty: 90 1RF Dose Instruction: TAKE 1 TABLET BY MOUTH EVERY DAY Rx Instructions: TAKE 1 TABLET BY MOUTH EVERY DAY rosuvastatin 20 mg tablet 20 mg PO DAILY Qty: 90 1RF (DME) Dexcom G6 Sensor Device See Rx Instructions .Route Qty: 3 5RF Rx Instructions: As directed Follow-up/Referrals: Tobias Carter MD [Primary Care Provider] - Pal Nelson MD [Physician] -
[2024-09-08 17:58] LABS: Basophils Absolute Auto 0.1 K/mm3 (0.0-0.1); Basophils Percent Auto 0.3 % (0.2-1.2); Hemoglobin 16.5 g/dL (14.0-18.0); Immature Granulocyte Absolute 0.05 K/mm3 (0.00-0.031); Immature Granulocyte Percent A 0.3 % (0-0.5); Lymphocytes Absolute Auto 0.76 K/mm3 (0.9-3.2); Lymphocytes Percent Auto 4.7 % (18.3-44.2); Mean Corpuscular HGB Conc 34.4 g/dl (32-36); Mean Corpuscular Hemoglobin 29.8 pg (26-34); Mean Corpuscular Volume 86.8 fl (80-100); Monocytes Percent Auto 6.4 % (2.6-8.5); Neutrophils Absolute Auto 14.2 K/mm3 (1.3-6.7); Neutrophils Percent Auto 88.3 % (45.5-73.1); Platelet Count Result 209 k/mm3 (150-375); Red Blood Count 5.53 M/mm3 (4.6-6.20); Red Cell Distribution Width 12.1 % (11.5-14.5); White Blood Count 16.1 K/mm3 (4.5-10.0)
[2024-09-08 18:00] VITALS: BP 149/89; PULSE 69; RESP 12; O2SAT 100
[2024-09-08 18:11] LABS: Alanine Aminotransferase 40 U/L (6-50); Albumin Level 4.8 g/dL (3.5-5.1); Alkaline Phosphatase 35 U/L (38-126); Anion Gap 10 mmol/L (4-12); Aspartate Amino Transferase 40 U/L (17-59); Blood Urea Nitrogen 32 mg/dL (9-20); Calcium 9.5 mg/dL (8.4-10.2); Carbon Dioxide 23 mmol/L (22-30); Chloride 104 mmol/L (98-107); Estimated CRCL calculation 96 ml/min; Estimated Glomerular Filt Rate > 60; Glucose 143 mg/dL (65-110); Potassium 3.8 mmol/L (3.4-5.0); Sodium 137 mmol/L (137-145); Total Protein 7.7 g/dL (6.3-8.2)
[2024-09-08 18:17] LABS: Platelet Estimate Adequate (Adequate); Schistocytes None Seen
[2024-09-08 18:26] LABS: INR 1.1; Partial Thromboplastin Time 21.6 Seconds (22.3-36.8); Prothrombin Time 14.4 Seconds (11.1-14.7)
[2024-09-08 19:57] VITALS: BP 142/83; PULSE 77; RESP 16; O2SAT 99
[2024-09-08 20:00] VITALS: BP 142/83; PULSE 77; RESP 16; O2SAT 99
[2024-09-08 20:28] LABS: Magnesium 2.2 mg/dL (1.6-2.3)
== END 2024-09-08 20:04 | disposition home or self-care (01) ==
PROVIDERS: Emergency Provider Emergency Medicine; PCP Family Medicine
DX: S79.921A Unspecified injury of right thigh, initial encounter (principal); R55 Syncope and collapse; I10 Essential (primary) hypertension; I25.118 Atherosclerotic heart disease of native coronary artery with other forms of angina pectoris; I25.2 Old myocardial infarction; E78.2 Mixed hyperlipidemia; R73.03 Prediabetes; Z98.61 Coronary angioplasty status; Z79.82 Long term (current) use of aspirin; Z79.899 Other long term (current) drug therapy; Z79.84 Long term (current) use of oral hypoglycemic drugs; R94.31 Abnormal electrocardiogram [ECG] [EKG]; X50.9XXA Other and unspecified overexertion or strenuous movements or postures, initial encounter; Y93.02 Activity, running
CPT/HCPCS: 36415; 71045; 73701; 74018; 80053; 83735; 85025; 85610; 85730; 93005; 99284; Q9967

== ENCOUNTER 2024-09-24 13:55 | Outpatient (CLI) | payer OTHER, SELFPAY ==
--- NOTE | ~2024-09-24 | MR_ITS ---
EXAMINATION: MR femur RT wo con DATE: 09/24/2024 14:46 INDICATION: Strain of adductor muscle, fascia and tendon with posterior right thigh pain. TECHNIQUE: Magnetic resonance imaging (MRI) of the right thigh was performed without intravenous cont rast. Sequences included axial, sagittal and coronal T1-weighted FSE and fluid sensitive FSE STIR. COMPARISON: CT dated FINDINGS: There is high-grade partial or more likely complete avulsion of the proximal semimembranosus tendon f rom its initial tuberosity origin with approximately 5 cm distal retraction. There is a small amount of residual torn semimembranosus tendon remaining attached to the ischial tuberosity. Intramuscular h ematoma measuring 5 cm craniocaudally and 2.5 x 1.8 cm in maximal transaxial dimensions along the ret racted portion of the torn tendon. Additional severe partial tears of the proximal biceps femoris and semitendinosus approximately indication tuberosity as well as along the more distal myotendinous maik ction in the mid thigh. There is epimysial edema extending craniocaudally along the margins of the mu sculature in the posterior compartment. There is normal bone marrow signal throughout with no fractur e or pathologic marrow replacing process. Mild osteoarthritis at the bilateral hips. No pathologicall y enlarged right pelvic or inguinal lymphadenopathy. IMPRESSION: 1. High-grade partial if not complete avulsions/tear of the ischial tuberosity origin of the proximal semimembranosus tendon. 2. Additional multifocal mild partial tears along the proximal to mid biceps femoris and semitendinos us muscles and tendons. Reviewed, dictated and finalized at location A. IMPRESSION: 1. High-grade partial if not complete avulsions/tear of the ischial tuberosity origin of the proximal semimembranosus tendon. 2. Additional multifocal mild partial tears along the proximal to mid biceps fe regina and semitendinosus muscles and tendons.
== END 2024-09-24 13:56 | disposition home or self-care (01) ==
LOC: GOSHIMG 13:58
PROVIDERS: Visit Provider Physician Assistant Surgical
DX: S76.211A Strain of adductor muscle, fascia and tendon of right thigh, initial encounter (principal); X58.XXXA Exposure to other specified factors, initial encounter
CPT/HCPCS: 73718